=== PATIENT | male | born 1950 | race Caucasian/White ===

== ENCOUNTER 2023-01-06 16:20 | Outpatient (CLI) | payer MEDICARE, OTHER, SELFPAY ==
[2023-01-06 17:28] LABS: Alanine Aminotransferase 59 U/L (6-50); Aspartate Amino Transferase 55 U/L (17-59)
== END 2023-01-06 16:21 | disposition home or self-care (01) ==
LOC: ANHLAB 16:30
PROVIDERS: PCP Family Medicine; Visit Provider Podiatrist Foot & Ankle Surgery
DX: B35.1 Tinea unguium (principal)
CPT/HCPCS: 36415; 84450; 84460

== ENCOUNTER 2023-04-21 16:42 | Outpatient (CLI) | payer MEDICARE, OTHER, SELFPAY ==
[2023-04-21 17:21] LABS: Alanine Aminotransferase 54 U/L (6-50); Aspartate Amino Transferase 55 U/L (17-59)
== END 2023-04-21 16:43 | disposition home or self-care (01) ==
LOC: ANHLAB 16:44
PROVIDERS: PCP Family Medicine; Visit Provider Podiatrist Foot & Ankle Surgery
DX: B35.1 Tinea unguium (principal)
CPT/HCPCS: 36415; 84450; 84460